=== PATIENT | male | born 1940 | race Caucasian/White ===

== ENCOUNTER 2021-12-15 22:03 | Inpatient (IN) | payer OTHER ==
[2021-12-15] MEDS ORDERED: Morphine 4 MG/ML VIAL ONE (22:50)
[2021-12-16] MEDS ORDERED: Ondansetron PF 4 MG/2 ML Vial IVP PRN (01:25)
[2021-12-16] MEDS ORDERED: hydrALAZINE 20 MG/ML VIAL SLOW IVP PRN (01:27)
[2021-12-16 03:06] VITALS: BMI 21.1
[2021-12-16 04:29] LABS: #Lymphocytes 2.3 thou/uL (1.20-3.40); #Monocytes 1.4 thou/uL (0.11-0.59); #Neutrophils 7.8 thou/uL (1.40-6.50); %Basophils 0.1 % (0.0-1.0); %Eosinophils 0.3 % (0.0-10.0); %Lymphocytes 19.7 % (21.0-51.0); %Monocytes 11.9 % (0.0-10.0); Hemoglobin 15.1 g/dL (14.0-18.0); Mean Corpuscular HGB CONC 32.9 g/dL (32.0-36.0); Mean Corpuscular Hemoglobin 30.2 pg (27.0-31.0); Mean Corpuscular Volume 91.9 fL (78.0-98.0); Platelet Count 169 thou/uL (130-400); RBC Distribution Width 13.3 % (11.5-14.5); White Blood Cell (WBC) Count 11.4 thou/uL (4.8-10.8)
[2021-12-16 04:52] LABS: Anion Gap 14 mmol/L (10-20); BUN (Urea Nitrogen) 19 mg/dL (8.4-25.7); Calc. Creatinine Clearance 41 mL/min (70-130); Calcium 9.1 mg/dL (7.8-10.44); Carbon Dioxide 20 mmol/L (23-31); Chloride 107 mmol/L (98-107); Estimated GFR 50; Glucose 100 mg/dL (83-110); Potassium 4.9 mmol/L (3.5-5.1); Sodium 136 mmol/L (136-145)
[2021-12-16] MEDS ORDERED: Amlodipine 10 MG TAB PO SCH (09:00)
[2021-12-16] MEDS: NIFEdipine XL 30 MG TAB PO SCH ×2 (10:31→20:37)
[2021-12-16] MEDS: Enoxaparin Sodium 40 MG/0.4 ML SYRINGE SC SCH (10:32)
[2021-12-16 15:55] LABS: Troponin I 0.128 ng/mL (< 0.028)
[2021-12-16] MEDS: Acetaminophen 325 MG TAB PO PRN (17:11)
[2021-12-17] MEDS: Acetaminophen 325 MG TAB PO PRN (02:44)
[2021-12-17] MEDS ORDERED: Morphine 2 MG/ML VIAL SLOW IVP SCH (04:00)
[2021-12-17 04:26] LABS: #Eosinphils 0.1 thou/uL (0.0-0.7); #Lymphocytes 2.2 thou/uL (1.20-3.40); #Monocytes 0.8 thou/uL (0.11-0.59); #Neutrophils 5.3 thou/uL (1.40-6.50); %Basophils 0.3 % (0.0-1.0); %Lymphocytes 26.5 % (21.0-51.0); %Monocytes 9.2 % (0.0-10.0); Hemoglobin 14.8 g/dL (14.0-18.0); Mean Corpuscular HGB CONC 32.6 g/dL (32.0-36.0); Mean Corpuscular Hemoglobin 29.4 pg (27.0-31.0); Mean Corpuscular Volume 90.1 fL (78.0-98.0); Mean Platelet Volume 10.1 fL (7.4-10.4); Platelet Count 168 thou/uL (130-400); RBC Distribution Width 13.2 % (11.5-14.5); Red Blood Cell (RBC) Count 5.03 mill/uL (4.70-6.10); White Blood Cell (WBC) Count 8.5 thou/uL (4.8-10.8)
[2021-12-17 04:47] LABS: Anion Gap 17 mmol/L (10-20); BUN (Urea Nitrogen) 23 mg/dL (8.4-25.7); Calc. Creatinine Clearance 39 mL/min (70-130); Calcium 9.2 mg/dL (7.8-10.44); Carbon Dioxide 18 mmol/L (23-31); Chloride 105 mmol/L (98-107); Estimated GFR 46; Glucose 78 mg/dL (83-110); Potassium 4.2 mmol/L (3.5-5.1); Sodium 136 mmol/L (136-145)
[2021-12-17] MEDS ORDERED: NIFEdipine XL 30 MG TAB PO SCH (09:00)
[2021-12-17] MEDS: Enoxaparin Sodium 40 MG/0.4 ML SYRINGE SC SCH (10:07)
[2021-12-17 12:00] VITALS: BP 142/71; TEMP 97.6
== END 2021-12-17 16:17 | disposition home or self-care (01) | DRG 683 ==
LOC: ERS 22:03 → 2NO 12-16 01:24
PROVIDERS: ADMIT Hospitalist; ATTEND Hospitalist
DX: N17.9 Acute kidney failure, unspecified (principal); I16.1 Hypertensive emergency; I24.8 Other forms of acute ischemic heart disease; Z20.822 Contact with and (suspected) exposure to COVID-19; I10 Essential (primary) hypertension; F12.10 Cannabis abuse, uncomplicated; F20.9 Schizophrenia, unspecified; F31.9 Bipolar disorder, unspecified; Z87.891 Personal history of nicotine dependence; Z91.14 Patient's other noncompliance with medication regimen
CPT/HCPCS: 36415; 80048; 84484; 85025; 93306; J0360; J1650; J2270; U0003; U0005